=== PATIENT | female | born 1950 | race Two or more races ===

== ENCOUNTER → 2016-05-07 | Outpatient (CLI) | payer MEDICARE ==
[~2016-05-07] VITALS: Ht 149.9 cm; Wt 60.8 kg
[~2016-05-07] MED LIST: ATORVASTATIN CA40 MG ORAL; DILAUDID4 MG ORAL; DOK100 M1 PO; LISINOPRIL5 MG ORAL; NOVOLOG100 UNIT/3 SUBQ; OMEPRAZOLE20 M2 ORAL; VICODIN HP 10-1 EACH ORAL; ZOFRAN4 M3 ORAL
[2016-05-07 16:00] VITALS: BP 118/77
--- NOTE | 2016-05-07 16:35 | GI Initial Consult Note ---
History of Present Illness General Date patient seen: May 07, 2016 Time patient seen: 16:24 Referring physician: WILLIAM Reason for Consultation: EVALUATION OF PANCREATIC CA Present Illness HPI 65 year old female patient referred to [facility] by Dr. Mauro for evaluation of pancreatic CA, possible EUS. The patient presents today with abdominal pain since 2015, constipation, N/V and abdominal bloating. She was previously admitted to [facility] back in February where CT scans show a 5.6 mm pancreatic mass. The patient was also admitted to [facility] where according to the family the patient had biopsy performed. In addition, a further assessment revealed that the patient had a PET scan in [place] in which the pancreatic CA was graded. The pt daughter denies any history of any upper endoscopic procedures for the patient. Allergies: Coded Allergies: No Known Allergies (Unverified , 05/07/16) Patient History History Provided By: Family Member, Medical Record - pending request PMH Narrative HTN gallstone cholesterol angina / CAD DM PSHx cholecystectomy angiogram 17 years ago Social History: Reports: smoking - quit Review of Systems All Other Systems: negative except mentioned in HPI Physical Exam Vital Signs Date Time Temp Pulse Resp B/P Pulse Ox O2 Delivery O2 Flow Rate FiO2 05/07/16 16:00 98.2 88 18 118/77 97 Sp02 EP Interpretation: reviewed General Appearance: normal inspection, well appearing, no apparent distress, alert Head: normocephalic EENT: normal ENT inspection Neck: supple Respiratory: lungs clear, normal breath sounds Cardiovascular: normal rate Gastrointestinal: normal inspection, soft, normal bowel sounds, tenderness - generalized Rectal: normal exam Genitourinary: normal inspection Musculoskeletal: normal inspection, back normal Neurologic: normal inspection, alert, oriented x3, responsive Psychiatric: normal inspection, judgement/insight normal, memory normal Skin: normal inspection, normal color, no rash, warm/dry, palpation normal Lymphatic: normal inspection, no adenopathy GI: Plan Problems: (1) Pancreatic cancer (2) Constipation (3) N&V (nausea and vomiting) (4) HTN (hypertension) (5) Gallstone (6) Elevated cholesterol (7) CAD (coronary artery disease) (8) Diabetes mellitus Plan at this time the patient does not require any endoscopic procedures given: - biopsy at [facility] was shown to be malignant (per patient) - pt had PET scan at [place] with pancreatic CA with unknown grade. patient must be referred to an Oncologist. this was explained and acknowledged by the family the patient was also instructed to go the ED if the patient had any unbearable pain, tolerable at this time Seen with Dr. Polanco Thank you for referring this patient. Leanne Zepeda N.P. May 07, 2016 16:35
== END | disposition home or self-care (01) ==
LOC: PAN 15:19
DX: C25.9 Malignant neoplasm of pancreas, unspecified (principal); K59.00 Constipation, unspecified; R11.2 Nausea with vomiting, unspecified; I11.0 Hypertensive heart disease with heart failure; K80.80 Other cholelithiasis without obstruction; E78.00 Pure hypercholesterolemia, unspecified; I25.10 Atherosclerotic heart disease of native coronary artery without angina pectoris; E11.9 Type 2 diabetes mellitus without complications; Z90.49 Acquired absence of other specified parts of digestive tract; Z87.891 Personal history of nicotine dependence
CPT/HCPCS: 99201